=== PATIENT | female | born 1995 | race Caucasian/White ===

== ENCOUNTER 2016-10-16 03:02 | Emergency (ER) | payer OTHER | END 2016-10-16 06:16 | disposition home or self-care (01) | LOC: ER1 03:02 | DX: J10.1 Influenza due to other identified influenza virus with other respiratory manifestations (principal); Z88.8 Allergy status to other drugs, medicaments and biological substances | CPT/HCPCS: 87081; 87880; 99283 ==

== ENCOUNTER 2020-09-23 21:48 | Emergency (ER) | payer MEDICARE, OTHER ==
[~2020-09-23 21:48] MED LIST: AEROECLIPSE II1 EACH MC; ALBUTEROL2.5 MG/3 M INH; BACTROBAN OINT22 GM EXT; HYDROCODONE-HOMA5 ML PO
[2020-09-23 23:07] LABS: HEMOGLOBIN 13.8 gm/dl (12.3-15.3); RED BLOOD COUNT 4.41 M/UL (4.00-5.10); WHITE BLOOD COUNT 5.9 K/UL (4.5-11.0)
[2020-09-23 23:25] LABS: BUN/CREATININE RATIO 27 (0-10)
== END 2020-09-24 01:52 | disposition home or self-care (01) ==
LOC: ER1 21:48
PROVIDERS: Physician Assistant
DX: J06.9 Acute upper respiratory infection, unspecified (principal); G80.9 Cerebral palsy, unspecified; Z20.822 Contact with and (suspected) exposure to COVID-19; Z20.828 Contact with and (suspected) exposure to other viral communicable diseases; Z88.8 Allergy status to other drugs, medicaments and biological substances
CPT/HCPCS: 0240U; 71045; 80053; 85025; 99285

== ENCOUNTER 2021-12-19 22:59 | Emergency (ER) | payer MEDICARE, OTHER | END 2021-12-20 00:30 | disposition left against medical advice (07) | LOC: ER1 22:59 | DX: R25.1 Tremor, unspecified (principal); R00.0 Tachycardia, unspecified; Z88.8 Allergy status to other drugs, medicaments and biological substances | CPT/HCPCS: 99283 ==

== ENCOUNTER → 2022-02-15 | Day surgery (SDC) | payer MEDICARE, OTHER ==
[~2022-02-15] MED LIST changes: +ACTONEL35 MG PO; +ALPRAZOLAM ER1 MG PO; +AZELASTINE137 MCG/0.; +BUDESONIDE-FO10.2 GM INH; +BUDESONIDE0.5 MG/2 M INH; +CALCIUM500 MG PO; +CAMILA0.35 MG PO; +CLARITIN10 M2 PO; +COLACE100 MG PO; +DEPAKOTE ER500 MG PO; +DIASTAT 2.5 MG2.5 MG PR; +DIVALPROEX SOD250 MG PO; +ELFOLATE15 MG PO; +FIBER LAXATIVE625 MG PO; +FLONASE 0.05% N16 GM; +FLOVENT 110.088 GM/I INH; +FLUCONAZOLE150 MG PO; +FOLIC ACID1 MG PO; +GAVILAX17 GM PO; +LEXAPRO TAB 1010 MG PO; +LINZESS145 MCG PO; +MEDROXYPRO150 MG/11 IM; +MUPIROCIN22 GM TP; +MYCOSTATIN POWD15 GM TOP; +RETIN A MICRO TP; +SYMBICORT 16010.2 GM INH; +TOPROL XL200 MG PO; +VENTOLIN/PROVE0.5 ML INH; +VITAMIN D3125 MCG/1 PO; +ZADITOR5 ML OP; +ZOLPIDEM TARTRA10 MG PO
== END | disposition home or self-care (01) ==
LOC: OR 13:17
DX: K04.7 Periapical abscess without sinus (principal); J32.0 Chronic maxillary sinusitis; G80.9 Cerebral palsy, unspecified; R62.59 Other lack of expected normal physiological development in childhood; J45.909 Unspecified asthma, uncomplicated; K21.9 Gastro-esophageal reflux disease without esophagitis; E03.9 Hypothyroidism, unspecified; F41.9 Anxiety disorder, unspecified; Z79.899 Other long term (current) drug therapy; Z88.8 Allergy status to other drugs, medicaments and biological substances
CPT/HCPCS: 84703; 87070; 87205; J0295; J1100; J1885; J2370; J2405; J2704

== ENCOUNTER 2022-04-10 22:59 | Emergency (ER) | payer MEDICARE, OTHER | END 2022-04-11 00:55 | disposition left against medical advice (07) | LOC: ER1 22:59 | DX: Z53.21 Procedure and treatment not carried out due to patient leaving prior to being seen by health care provider (principal) ==